=== PATIENT | male | born 1990 | race Two or more races ===

== ENCOUNTER 2023-06-20 15:29 | Inpatient (IN) | payer OTHER ==
[2023-06-20 16:55] VITALS: BMI 22.9
[2023-06-20] MEDS ORDERED: IBUPROFEN 400 MG TABLET (FP) PO PRN (21:08)
[2023-06-20] MEDS ORDERED: IBUPROFEN 600 MG TABLET (FP) PO PRN (21:08)
[2023-06-20] MEDS ORDERED: MAG HYDROX/AL HYDROX/SIMETH 30 ML UNIT-DOSE CUP PO PRN (21:08)
[2023-06-20] MEDS ORDERED: ACETAMINOPHEN 325 MG TABLET (FP) PO PRN (21:08)
[2023-06-20] MEDS ORDERED: POLYETHYLENE GLYCOL (HEALTHYLAX) 3350 17 GM PACKET PO PRN (21:08)
[2023-06-20] MEDS ORDERED: COLLOIDAL OATMEAL 1 BAR EACH TP PRN (21:08)
[2023-06-20] MEDS ORDERED: BENZOCAINE/MENTHOL (CHLORASEPTIC ) LOZENGE MM PRN (21:08)
[2023-06-20] MEDS ORDERED: guaiFENesin 600 MG TABLET.ER (FP) PO PRN (21:08)
[2023-06-20] MEDS ORDERED: BENZONATATE 200 MG CAPSULE PO PRN (21:08)
[2023-06-20] MEDS ORDERED: hydrOXYzine PAMOATE 25 MG CAPSULE (FP) PO PRN (21:08)
[2023-06-20] MEDS ORDERED: LOPERAMIDE HCL 2 MG CAPSULE PO PRN (21:08)
[2023-06-20] MEDS ORDERED: MAGNESIUM HYDROX 2400MG/30ML ORAL SUSPENSION 30 ML CUP PO PRN (21:08)
[2023-06-20] MEDS ORDERED: P-EPHED 60MG/TRIPROLIDI 2.5MG TABLET PO PRN (21:08)
[2023-06-20] MEDS ORDERED: MELATONIN 5 MG TABLETS PO SCH (22:00)
[2023-06-20] MEDS ORDERED: levETIRAcetam 500 MG TABLET (FP) PO ONE (22:00)
[2023-06-20] MEDS ORDERED: THIAMINE HCL 100 MG TABLET (FP) PO SCH (22:00)
[2023-06-20] MEDS: ASPIRIN 325 MG TABLET PO SCH (23:30)
[2023-06-21] MEDS ORDERED: PRENATAL VITAMINS W/ FOLIC ACID TABLET (FP) PO SCH (10:00)
[2023-06-21] MEDS: ASPIRIN 325 MG TABLET PO SCH (10:28)
[2023-06-21 11:52] LABS: CHLORIDE 110 mmol/L (98-107); POTASSIUM 4.2 mmol/L (3.5-5.1); SODIUM 141 mmol/L (136-145)
[2023-06-21 11:56] LABS: CALCIUM 8.6 mg/dL (8.5-10.1)
[2023-06-21 11:57] LABS: ALBUMIN 3.2 g/dl (3.4-5.0); ANION GAP 6 mmol/L (4-13); CO2 25 mmol/L (21-32); GLUCOSE,RANDOM 118 mg/dL (74-106)
[2023-06-21 11:59] LABS: LIPASE 623 U/L (73-393)
[2023-06-21 12:00] LABS: SGOT/AST 23 U/L (15-37)
[2023-06-21] MEDS ORDERED: TUBERCULIN PPD 5 TU/0.1ML SYRINGE (IN PATIENT USE ONLY) ID ONE (12:00)
[2023-06-21 12:01] LABS: BLOOD UREA NITROGEN 25.1 mg/dL (7-18); TOT PROT 5.8 g/dl (6.4-8.2)
[2023-06-21 12:02] LABS: HEMATOCRIT 37.3 % (35.4-49); HEMOGLOBIN 12.3 GM/dL (11.7-16.9); MCHC 32.9 g/dl (32.0-35.9); MEAN CELL VOLUME 94.2 fl (80-96); MEAN PLT VOLUME 10.4 fl (7.5-11.1); PLATELET COUNT 110 10^3/uL (134-434); RBC 3.96 M/mm3 (4.00-5.60); RDW 14.3 % (11.9-15.9); WHITE BLOOD COUNT 6.5 K/mm3 (4.0-10.0)
[2023-06-21 12:03] LABS: ALK PHOS 109 U/L (45-117)
[2023-06-21 12:04] LABS: CREATININE 1.1 mg/dL (0.55-1.3); SGPT/ALT 31 U/L (13-61)
[2023-06-21 12:05] LABS: BILIRUBIN,TOTAL 0.7 mg/dL (0.2-1)
[2023-06-21] MEDS ORDERED: PANTOPRAZOLE 40 MG TABLET PO SCH (12:15)
[2023-06-21] MEDS ORDERED: TUBERCULIN PPD 5 TU/0.1ML VIAL ID ONE (12:16)
[2023-06-21 12:20] LABS: SYPHILIS W/ RPR CONF NON-REACTIVE (NONREACTIVE)
[2023-06-21 12:43] VITALS: BP 103/63; PULSE 79; RESP 17; TEMP 97.7
== END 2023-06-21 13:04 | disposition left against medical advice (07) | DRG 770 ==
LOC: YASAS 15:29 → Y5N 21:15
PROVIDERS: ADMIT Allergy & Immunology; ATTEND Psychiatry & Neurology Pain Medicine
PROC: HZ42ZZZ Group Counseling for Substance Abuse Treatment, Cognitive-Behavioral (ICD-10-PCS; principal; 2023-06-20)
DX: F14.20 Cocaine dependence, uncomplicated (principal); F12.20 Cannabis dependence, uncomplicated; F17.210 Nicotine dependence, cigarettes, uncomplicated; I25.2 Old myocardial infarction; Z95.2 Presence of prosthetic heart valve; Z95.0 Presence of cardiac pacemaker; Z86.69 Personal history of other diseases of the nervous system and sense organs
CPT/HCPCS: 36415; 80053; 80307; 83690; 85027; 86780; 86803; 87522; 87635; 93005; 93010